=== PATIENT | female | born 1950 | race Caucasian/White ===

== ENCOUNTER → 2020-02-27 09:34 | Outpatient (CLI) | payer MEDICARE, MEDICAID | END | disposition home or self-care (01) | LOC: D.NM 02-22 08:15 | PROVIDERS: ATTEND Internal Medicine Hematology & Oncology | DX: D05.11 Intraductal carcinoma in situ of right breast (principal); R10.10 Upper abdominal pain, unspecified; E11.9 Type 2 diabetes mellitus without complications; I10 Essential (primary) hypertension; Z79.4 Long term (current) use of insulin; C50.411 Malignant neoplasm of upper-outer quadrant of right female breast; E78.49 Other hyperlipidemia ==